=== PATIENT | female | born 1960 | race Caucasian/White ===

== ENCOUNTER → 2016-11-05 | Outpatient (CLI) | payer BC ==
[~2016-11-05] MED LIST: CYCL10TA2 PO; HYDR-971 PO; IBUP200T58 PO; OMEG-128 PO; ONDA4TAB10 SL; OXYC-323 PO; RANI150C PO; UBID10CA5 PO
[2016-11-05 10:14] LABS: BASO % 1 % (0-3); EOS % 1 % (0-3); HEMATOCRIT 46.5 % (36.0-47.0); HEMOGLOBIN 16.3 g/dL (12.0-15.5); LYMPH # 1.3 x10^3/uL (1.0-4.8); LYMPH % 17 % (24-48); MEAN CORPUSCULAR HEMOGLOBIN 32 pg (25-35); MEAN CORPUSCULAR HGB CONC 35 g/dL (31-37); MEAN CORPUSCULAR VOLUME 91 fL (79-100); MONO % 9 % (0-9); NEUT % 72 % (31-73); PLATELET COUNT 365 x10^3/uL (140-400); RED BLOOD COUNT 5.09 x10^6/uL (3.50-5.40); RED CELL DISTRIBUTION WIDTH 13.4 % (11.5-14.5); WHITE BLOOD COUNT 7.6 x10^3/uL (4.0-11.0)
[2016-11-05 10:55] LABS: ALBUMIN 4.4 g/dL (3.4-5.0); ALBUMIN/GLOBULIN RATIO 1.2 (1.0-1.7); CALCIUM 9.9 mg/dL (8.5-10.1); CREATININE 0.8 mg/dL (0.6-1.0); GFR 74.7; POTASSIUM 4.1 mmol/L (3.5-5.1); TOTAL BILIRUBIN 0.4 mg/dL (0.2-1.0); TOTAL PROTEIN 8.2 g/dL (6.4-8.2)
--- NOTE | 2016-11-07 10:07 | HP ---
ADMIT DATE: 11/05/2016 William Vazquez dictating for Dr. Rodri Houston. DATE OF SURGERY: Will be 11/09/2016. HISTORY OF PRESENT ILLNESS: The patient is a pleasant 56-year-old woman who was having difficulty with low back pain on the left side along with pain which radiates to her left buttock and left posterior thigh and leg. The problem started in July 2016 without inciting event. She rates her pain as a 7/10. Sitting and driving increase her pain. Standing and walking help. She takes [place] 5. She has had epidural steroid injections x 2, which initially gave her significant relief, but now her pain has returned. She underwent 6 weeks of physical therapy without any relief. She has been through chiropractic treatment again without significant help. PAST MEDICAL HISTORY: None. PAST SURGICAL HISTORY: Cholecystectomy in 2014. FAMILY HISTORY: Noncontributory. SOCIAL HISTORY: Employed in [place]. . Exercises daily. Denies substance abuse. Smokes half pack per day and has for 10 years. Drinks tea and soda daily. ALLERGIES: No known drug allergies. CURRENT MEDICATIONS: [place], CoQ10, ranitidine, omega 3, Tums. REVIEW OF SYSTEMS: A 12-point review of systems was obtained and is noncontributory except that mentioned above. PHYSICAL EXAMINATION: Neurosurgery examination: GENERAL APPEARANCE: Alert, pleasant, in no acute distress. HEAD: Normocephalic and atraumatic. SKIN: Warm and dry. MUSCULOSKELETAL: Lumbar paraspinal muscle bulk is normal, restricted range of motion of the lumbar spine, [id number] tenderness of the lower lumbar spine with palpation, normal range of motion of the lower extremities bilaterally. EXTREMITIES: No clubbing, cyanosis, or edema. NEUROLOGIC: Alert and oriented x 3, normal recent and remote memory, strength 5/5 in bilateral lower extremities, sensory was intact to light touch in bilateral lower extremities except for decrease on the left heel and lateral left foot, reflexes were present and symmetric in lower extremities bilaterally except for absent ankle jerks, positive straight leg raising on the left, negative straight leg raising on the right. Difficulty with toe walking on the left, but otherwise normal gait. IMAGING: Reviewed. I reviewed a lumbar MRI scan. On that study, the principal abnormalities are at L5-S1 where there is a moderately large left paracentral disk protrusion with significant mass effect and left lateral recess stenosis and compression of the left S1 nerve root. There is moderate spinal stenosis at this level because of the disk herniation. ASSESSMENT: 1. Intervertebral disk disorders with radiculopathy, lumbosacral region. 2. Spinal stenosis, lumbosacral region. PLAN: She has significant disk herniation at L5-S1 radiculopathy, which has failed to improve with conservative measures, I recommended lumbar surgery. I spoke about the surgery and the risks involved. She understands. She would like to go ahead. We will make the arrangements. RODRI HOUSTON MD DR: OSITO/dottie JOB#: [id number] / [id number]
== END | disposition home or self-care (01) ==
LOC: SURGPAT 09:28
PROVIDERS: ATTEND Neurological Surgery
DX: M51.16 Intervertebral disc disorders with radiculopathy, lumbar region (principal)
CPT/HCPCS: 36415; 80053; 85027; 87641

== ENCOUNTER 2016-11-09 07:11 | Day surgery (SDC) | payer BC ==
[~2016-11-09] VITALS: Ht 162.6 cm; Wt 61.7 kg
[~2016-11-09 07:11] MED LIST changes: +BACITRACIN 50,000 UNIT in IV NORMAL SALINE 1000ML BAG 1,000 ML IRR ONE; +BUPIVACAINE-EPI 0.25%-1:200000 MPF 30 ML VIAL. ONE; -CYCL10TA2 PO; +FENTANYL PF 100 MCG/2 ML VIAL. IV PRN; +GELATIN SPONGE SIZE 100. ONE; +HYDROmorphone 2 MG/ML VIAL IV PRN; +IV RINGERS,LACTATED 1000ML 1,000 ML IV SCH; +KETOROLAC 60 MG/2 ML INJ FOR OR. ONE; +LIDOCAINE 1% 1 ML SYRINGE. ID PRN; +MORPHINE SULFATE 2 MG/ML DISP.SYRIN. IV PRN; -ONDA4TAB10 SL; +ONDANSETRON PF 4 MG/2 ML VIAL. IV PRN; -OXYC-323 PO; +PROCHLORPERAZINE 10 MG/2 ML VIAL. IV PRN; +THROMBIN TOPICAL 20,000 UNIT SPRAY.SYRN KIT TP ONE
[2016-11-09] MEDS ORDERED: FENTANYL PF 100 MCG/2 ML VIAL. ONE (07:24)
[2016-11-09] MEDS ORDERED: REMIFENTANIL 2 MG VIAL. IV ONE (07:24)
[2016-11-09] MEDS ORDERED: PROPOFOL 50 ML IV ONE (07:24)
[2016-11-09] MEDS ORDERED: LIDOCAINE 2% 100 MG/5 ML SYRINGE. ONE (07:24)
[2016-11-09] MEDS ORDERED: 0.9 % SODIUM CHLORIDE 50 ML VIAL. IJ ONE (07:24)
[2016-11-09] MEDS ORDERED: PROPOFOL 20 ML IV ONE (07:24)
[2016-11-09] MEDS ORDERED: SUCCINYLCHOLINE 200 MG/10 ML VIAL. ONE (07:25)
[2016-11-09] MEDS ORDERED: ROCURONIUM 50 MG/5 ML VIAL. ONE (07:25)
[2016-11-09] MEDS ORDERED: DESFLURANE 61 TO 120 MINUTES IH ONE (09:22)
[2016-11-09] MEDS ORDERED: ONDANSETRON PF 4 MG/2 ML VIAL. ONE (09:22)
[2016-11-09] MEDS ORDERED: FAMOTIDINE 20 MG/2 ML VIAL ONE (09:22)
[2016-11-09] MEDS ORDERED: DEXAMETHASONE SOD PHOS 20 MG/5 ML VIAL. ONE (09:22)
[2016-11-09] MEDS ORDERED: EPHEDRINE PF IN SALINE 50 MG/5 ML DISP.SYRIN. IV ONE (09:31)
[2016-11-09] MEDS ORDERED: PHENYLEPHRINE in 0.9% NACL PF 1 MG/10 ML DISP.SYRIN. IV ONE (10:22)
[2016-11-09] MEDS ORDERED: CYCLOBENZAPRINE 10 MG TABLET. PO PRN (11:15)
[2016-11-09] MEDS ORDERED: OXYCODONE/APAP 5/325 TABLET. PO PRN ×2 (11:15→11:30)
[2016-11-09] MEDS ORDERED: ONDANSETRON ODT 4 MG TAB.RAPDIS. PO PRN (11:30)
[2016-11-09] MEDS: FENTANYL PF 100 MCG/2 ML VIAL. IV PRN ×2 (11:44→12:00)
[2016-11-09] MEDS ORDERED: OXYC-323 PO (11:45)
[2016-11-09] MEDS ORDERED: OXYCODONE/APAP 5/325 TABLET. PO ONE (11:45)
[2016-11-09] MEDS ORDERED: CYCL10TA2 PO (11:48)
[2016-11-09] MEDS ORDERED: ONDA4TAB10 SL (11:48)
--- NOTE | 2016-11-09 11:59 | DISCH ---
DISCHARGE INSTRUCTIONS Condition on Discharge Condition on Discharge: Stable Activity After Discharge Activity Instructions for Disc: Activity as tolerated Other activity instructions: No bending, lifting, pushing, pulling Bathing Instructions: Shower-keep dressing dry (May shower in 48 hours. May remove dressing when drainage stops. ) Lifting Instructions after Dis: No heavy lifting, No pulling or pushing Exercise Instruction after Dis: Walk 10 min, 3 x per day Driving Instructions after Dis: Do not drive Weight Bearing Status after Di: No restrictions Diet after Discharge Additional Diet Restrictions: resume previous diet Wound Incision Care Wound/Incision Care: Ice to area for comfort Other wound/incision instructi: change dressing if saturated. Wound Care Equipment: Dressings Contacting the DRPrashanth after DC Call your doctor for: Concerns you may have Follow-Up Follow up with: William @ 's office in 2 weeks. [phone] - call to make appt TYSHAWN HOUSTON MD Nov 09, 2016 11:58
[2016-11-09 13:00] VITALS: BP 113/66
--- NOTE | 2016-11-09 14:42 | OP ---
DATE OF SURGERY: 11/09/2016 PREOPERATIVE DIAGNOSES: Herniated lumbar disk, L5-S1, left. POSTOPERATIVE DIAGNOSIS: Herniated lumbar disk, L5-S1, left. OPERATION PERFORMED: Hemilaminotomy and microdiskectomy L5-S1, left. The operation was done with EMG monitoring, fluoroscopy, and microscopic dissection. [employer]ER: Danis Fermin M.D. assisted with the surgery, assisted with the microdiskectomy and closure. OPERATIVE INDICATIONS: The patient is a very pleasant 56-year-old woman who developed severe intractable back and left leg pain, which failed conservative measures. On imaging studies, she had a central left-sided disk herniation which was large and compressing the left S1 root and I recommended lumbar microsurgery. I spoke with her about the surgery and the risks, technique and the expected postoperative course. She understood and she wished to go ahead. DESCRIPTION OF PROCEDURE: Following general endotracheal anesthesia, the patient was positioned prone on the Ryan table. Her lumbar region was prepped and draped in the standard fashion. JEFF hose and AV impulse boots were applied for DVT prophylaxis. A microscope was draped. Fluoroscopy was draped and brought into the field. Monitoring was established. Ancef 2 gram was given less than 1 hour prior to initiation of surgery. Using fluoroscopic guidance, incision was made over the L5-S1 interspace. I dissected down through the skin and subcutaneous tissue and reflected the paraspinal muscles to the left and placed a Taiban micro disk retractor, brought in the microscope and the remainder of surgery done with the microscope using microscopic technique. I gently burred down a generous hemilaminotomy and a partial foraminotomy and then trimmed away thickened ligamentum flavum exposing the dura and the exiting nerve root. The S1 root was pushed posterolaterally and I gently retracted it medially, I incised the posteriorly displaced disk which was apparent beneath the ligament and this region was heavily calcified. I gently holding the retraction used the 2 mm micro Kerrison's to trim some of this calcification and then used a micropituitary to work into that area and remove fragments of disk and as I worked it, the region became better decompressed. I entered in the disk space with Alexandro as well as micro pituitaries and performed a diskectomy and again as I worked, the region became better decompressed and I was able to gently retract the nerve root farther medially. I continued to work and I made another incision in the ligament more medially where it was softer and did remove disk material. I worked superiorly, removed disk and inferiorly, removed disk from the subligamentous position. Much of the region was calcified and I trimmed much of this away. There was also multiple small fragments of disk and I removed these and as I worked, the entire region became very well decompressed and the root which were then pushed posterolaterally, returned to a much more normal position. I continued to work removing the disk, exploring carefully and was able to obtain an excellent decompression of the root. I palpated carefully. There were no retained fragments. The root was quite free throughout its course. I irrigated copiously. There were a number of epidural veins which I coagulated. I then removed the retractor, EMG monitoring was excellent. I closed the fascia, reirrigated, closed the subcutaneous tissue and the skin with a 4-0 subcuticular stitch. I was quite pleased with the surgery and the patient awakened and eventually taken to recovery room in excellent condition. TYSHAWN HOUSTON MD DR: OSITO/dottie JOB#: [id number] / [id number]
--- NOTE | 2016-11-12 16:52 | PATHOLOGY ---
PATHOLOGY REPORT * * * * * * * * FINAL DIAGNOSIS: Segments of fibrocartilaginous, adipose, and skeletal muscle tissue and bone, lumbar disc: - Degenerative changes of fibrocartilaginous tissue. COMMENT: There is no evidence of an acute inflammatory process or malignancy. (JPM:; d/t: 11/12/16) REPORT ELECTRONICALLY SIGNED BY: Jens Post M.D. DATE/TIME: 11/12/2016 16:51 * * * * * * * * GROSS PATHOLOGY: Received in formalin labeled "Krish Bradford, lumbar disc" are multiple segments of carmona, rubbery, and gritty tissue admixed with bone. The specimen measures 3.5 x 3.4 x 0.7 cm in aggregate dimensions. The tissue is submitted representatively in cassette A1, following decalcification. (CAA; 11/09/2016) INITIAL CPT CODE(S): A; 65424, 70760 Professional services performed [place] [facility] [place] [address] Technical services performed by [facility] at [address] [place] [address]. SPECIMEN(S) RECEIVED: A.Lumbar disc CLINICAL HISTORY: Lumbar herniated disc with radiculopathy PATIENT: KRISH GOLDSMITH /AGE: 701/13/1960 (Age: 56) PATIENT #: [id number] ALT CASE #: SPECIMEN COLLECTION DATE: 11/09/2016 SPECIMEN RECEIVED DATE: 11/09/2016 [facility] - [address] [place] [address] - PHONE: [phone] * * * END OF REPORT * * *
== END 2016-11-09 13:35 | disposition home or self-care (01) ==
LOC: SURG 07:11 → EDUNIT# 08:30 → SURG 13:35
PROVIDERS: ATTEND Neurological Surgery
DX: M51.26 Other intervertebral disc displacement, lumbar region (principal); K21.9 Gastro-esophageal reflux disease without esophagitis; D64.9 Anemia, unspecified; Z90.49 Acquired absence of other specified parts of digestive tract; Z98.51 Tubal ligation status; Z87.39 Personal history of other diseases of the musculoskeletal system and connective tissue
CPT/HCPCS: 63030; 76000; 97161; G8978; G8979; G8980; J0330; J0690; J0780; J1100; J1885; J2370; J2405; J2704; J3010; J3490; J7030; S0028